=== PATIENT | female | born 1970 | race Caucasian/White ===

== ENCOUNTER 2019-08-08 06:57 | Day surgery (SDC) | payer BC ==
[~2019-08-08 06:57] MED LIST: Buffered Lidocaine 1% SYRIN* 1 ML/SYRINGE INTRADERM ONE; Lactated Ringers 1000 ML Bag* 1,000 ML IV SCH
[2019-08-08] MEDS ORDERED: Lidocaine 2.5%/Prilocain 2.5%* 5 GM TUBE ONE (07:36)
[2019-08-08] MEDS ORDERED: Buffered Lidocaine 1% SYRIN* 1 ML/SYRINGE INTRADERM ONE (07:59)
[2019-08-08] MEDS ORDERED: Ondansetron INJ* 2 MG/ML VIAL IV PRN (10:31)
[2019-08-08] MEDS ORDERED: Naloxone* 0.4 MG/ML 1 ML VIAL IV PRN (10:31)
[2019-08-08] MEDS ORDERED: HYDROmorphone INJ1* 1 MG/ML SYRINGE IV PRN (10:31)
[2019-08-08] MEDS ORDERED: Acetaminophen TAB* 325 MG PO PRN (10:31)
[2019-08-08] MEDS ORDERED: KETAMINE HCL* 50 MG/ML 10 ML VIAL ONE (10:38)
[2019-08-08] MEDS ORDERED: Propofol* 500 MG/50 ML BTL ONE (10:38)
[2019-08-08] MEDS ORDERED: Lidocaine 2% PF * 5 ML VIAL ONE ×2 (10:38→12:06)
[2019-08-08] MEDS ORDERED: Midazolam* 1 MG/ML 2 ML VIAL (2 MG) ONE ×2 (10:38→12:43)
[2019-08-08] MEDS ORDERED: Lidocaine 1% INJ* 10 MG/ML 30 ML SDV ONE (11:10)
[2019-08-08] MEDS ORDERED: Bupivacaine 0.25% EPI 200,000* 30 ML SDV ONE (11:10)
[2019-08-08] MEDS ORDERED: Bupivacaine 0.25% SDV PF* 10 ML VIAL INJ ONE (11:10)
[2019-08-08] MEDS ORDERED: ceFAZolin 2 GM in NS PREMIX(*) 2 GM/100 ML BAG IVPB ONE (11:34)
[2019-08-08] MEDS ORDERED: Acetaminophen TAB* 325 MG ONE (13:38)
--- NOTE | 2019-08-08 13:51 | BRIEFOPN ---
Brief Operative/Procedure Note - Operation Details Pre-Op Diagnosis: Right breast DCIS Post-Op Diagnosis: Same plus right breat bloody nipple discharge Procedures: Needle localization excision of right breast DCIS Surgeon(s)/Proceduralists: Lit. Asst: OMAR Carney Anesthesia: local-MAC Estimated Blood Loss: 10cc Findings: see dictation Specimen(s)/Culture(s) Description: Right breast tissue x 2 Complications: none
[2019-08-08] MEDS ORDERED: Hydrocodone/Acetamin 10/325 1 TAB PO PRN (13:52)
[2019-08-08] MEDS ORDERED: HYDROmorphone INJ1* 1 MG/ML SYRINGE ONE (14:11)
[2019-08-08 14:58] VITALS: BP 116/74
--- NOTE | 2019-08-08 21:11 | OP ---
CC: [facility]; ROSEMARIE Tanner * DATE OF OPERATION: 08/08/19 - MERGED WITH [facility] DATE OF : 72 SURGEON: Bre Murrieta MD. AWNING INSTALLER: ROSEMARIE Rojas student. PRE-OP DIAGNOSIS: Right breast ductal carcinoma in situ. POST-OP DIAGNOSIS: Right breast ductal carcinoma in situ along with right breast bloody nipple discharge. OPERATIVE PROCEDURE: Needle localization excision of right breast ductal carcinoma in situ. INDICATION: Ms. Sanchez is a 49-year-old woman who was recently identified as having a ductal carcinoma in situ in the right breast prompting the plan for surgical intervention. On the day before surgery, she called the office saying she was having some bloody nipple discharge from the right breast, so plans were made to evaluate that at the time of surgery. DESCRIPTION OF PROCEDURE: On the morning of surgery, she underwent needle localization without difficulty. She was then brought to the operating room, placed on the OR table in the supine position. The bloody nipple discharge was identified before coming back to the OR and the duct had been marked. After infiltrating with local anesthetic, a curvilinear incision was made between the wire exit site and the nipple areolar complex. Subcutaneous tissue was then divided with electrocautery superiorly to the level of the wire. The wire was identified and was withdrawn through the skin and then additional tissue from around the wire was excised using electrocautery. Before this was completely removed, the duct in the nipple was cannulated with a lacrimal probe and then dissection inferiorly towards the underside of the nipple areolar complex was done until the duct holding the lacrimal probe was identified. This duct was isolated, the lacrimal probe was removed, the duct was divided. Then, additional breast tissue was taken from around the duct posteriorly. This was within a reasonable distance from the wire localization specimen. So, they were removed in continuity. Once the tissue was out of the breast, it was marked in the usual fashion with the additional notation that the double stitch randle the duct. This was handed off as a specimen and hemostasis was achieved with electrocautery. The report came back from radiology that the specimen did not in fact contain the clip. So, some additional tissue was grasped with an Allis clamp located anterior and superior to the previous specimen and this tissue was dissected for using electrocautery. It was also marked in the usual fashion and handed off as a specimen and sent to radiology. Meanwhile, hemostasis was again achieved with electrocautery. The wound was irrigated copiously with saline and again inspected for hemostasis, which was achieved with electrocautery. The report eventually came back from radiology that the second specimen contained the clip. Additional local was instilled into the wound and then closure was accomplished with 3-0 Vicryl in the subcutaneous layer and the skin was closed with 4-0 Prolene in the subcuticular fashion. Steri- Strips and a dry sterile dressing were applied. All sponge and instrument counts were correct. The patient tolerated the procedure well and was transferred to Recovery in a stable condition. [id number]/[facility] #: [id number] [facility] SYSTEMShanna
== END 2019-08-08 15:10 | disposition home or self-care (01) ==
LOC: OR 06:57
PROVIDERS: ATTEND Surgery
DX: D05.11 Intraductal carcinoma in situ of right breast (principal); N64.52 Nipple discharge; F17.210 Nicotine dependence, cigarettes, uncomplicated
CPT/HCPCS: 81025; 88307; A9270-GY; J0690; J1170; J2250; J2704; J3490

== ENCOUNTER 2019-09-26 06:46 | Day surgery (SDC) | payer BC ==
--- NOTE | 2019-09-05 16:35 | HP ---
CC: Dr. Gore; Dr. Stalin Coreas * PREOPERATIVE HISTORY AND PHYSICAL: DATE OF SURGERY/ADMISSION: 09/26/19 This patient is scheduled for same-day surgery admission with overnight extension by Dr. Murrieta on 09/26/19. DATE OF PREOPERATIVE HISTORY AND PHYSICAL: 09/03/19. ATTENDING SURGEON: Dr. Bre Murrieta * (dictated by Bhavna Lake NP). CHIEF COMPLAINT: Right breast cancer. HISTORY OF PRESENT ILLNESS: The patient is a 49-year-old female with a newly diagnosed right breast DCIS. The patient noted the onset of clear bilateral nipple discharge. She went to her primary care provider and was noted to be hyperthyroid, but also sent for a mammogram. Her thyroid medication was decreased and the nipple discharge stopped. Her mammogram, however, showed an indeterminate area of microcalcifications in the central portion of the right breast. Stereotactic biopsy confirmed grade 2 DCIS that was ER and KS positive. She underwent needle localization excision of the right breast DCIS on 08/08/[address] Murrieta. The pathology was notable for extensive DCIS with 1 segment 4 cm and a further anterior segment 2.5 cm with multiple very close margins. Dr. Murrieta reviewed the findings with the patient and the patient has opted for bilateral mastectomies with right sentinel lymph node biopsy and immediate reconstruction with Dr. Gore at the same setting. Dr. Murrieta described the nature of the bilateral mastectomies and the right sentinel lymph node biopsy. She described the relevant risks and benefits and also discussed with the patient the benefits of the immediate reconstruction with Dr. Gore. The patient has already had a consultation with Dr. Gore. Dr. Murrieta discussed the overnight stay in the hospital, the use of Hermelindo-Wiley drains, and the expected postoperative recovery. The patient has had a chance to ask questions and stated that she understands the information and is satisfied with the answers given to her questions. She will sign surgical consent on the day of surgery. PAST MEDICAL HISTORY: Graves disease with iodine ablation approximately 7 years ago in [place], anxiety, osteoarthritis, mild gastroesophageal reflux disease, hypothyroidism, deafness in the left ear since , history of sleep apnea and she does not use CPAP. PAST SURGICAL HISTORY: Left knee ACL repair 2008, ectopic 2002, and tonsillectomy 1978. MEDICATIONS: 1. Levothyroxine 125 mcg p.o. daily. 2. Venlafaxine 75 mg p.o. daily. ALLERGIES: No known drug allergies. FAMILY HISTORY: No known history of anesthesia complications, no history of deep vein thrombosis or pulmonary embolism, no unusual bleeding tendencies. Maternal first cousin was diagnosed with breast cancer in her 50s. Maternal grandmother diagnosed with ovarian cancer at age 68. SOCIAL HISTORY: She is a daily smoker who has smoked a pack a day for 25 years. She denies the use of recent alcohol and denies the use of other substances. She is employed full-time in housekeeping at [employer]. REVIEW OF SYSTEMS: Constitutional: No fevers, chills, excessive fatigue, or unintended weight loss. General: With previous anesthesia, she has had severe vomiting; no history of deep vein thrombosis or pulmonary embolism, no history of blood transfusions or unusual bleeding. Endocrine: No diabetes, history of Graves disease with iodine ablation 7 years ago. Breasts: As described in history of present illness. Respiratory: She is a smoker. She denies any dyspnea on exertion or chronic cough. History of sleep apnea and she does not use CPAP. Cardiovascular: No anginal chest pain or palpitations. Gastrointestinal: Mild gastroesophageal reflux; no nausea, vomiting, diarrhea, GI bleeding, constipation, or change in bowel habits. Musculoskeletal: Normal strength and tone, osteoarthritis in some joints. Integumentary: No chronic rashes or skin changes. Neurologic: No headache or blurred vision. No areas of focal weakness or numbness. Psychiatric: She expresses anxiety about the upcoming procedure. She has a history of depression. Genitourinary: No dysuria; last menstrual period 08/23/19 and her periods are regular. PHYSICAL EXAMINATION GENERAL: The patient is a 49-year-old obese female, well developed, in no acute distress. VITAL SIGNS: Height 62.5 inches, weight 202 pounds, body mass index 36.4. Blood pressure 117/80, pulse 80, and regular, respiratory rate 16, temperature 98.1 tympanic. HEENT: Benign. NECK: Supple, no cervical lymphadenopathy. No obvious thyromegaly. No supraclavicular lymphadenopathy. BREASTS: Right breast with a well-healed lumpectomy scar without any signs of infection. Breasts are symmetric and pendulous. There is no nipple retraction or skin dimpling. Palpation of both breasts reveals dense knobby tissue without discrete masses bilaterally. BACK: No CVA tenderness. LUNGS: Breath sounds bilaterally clear and equal. HEART: Regular rate and rhythm. No murmurs or rubs appreciated. ABDOMEN: Active bowel sounds, obese, soft, nondistended, nontender throughout. No obvious masses, organomegaly, or evidence of ventral hernia. PELVIC AND RECTAL: Deferred. EXTREMITIES: Warm without edema or skin ulceration. NEUROLOGIC: Alert and oriented x3, steady gait. SKIN: Warm, dry, intact. IMPRESSION: Intraductal carcinoma in situ of the right breast. PLAN: Same-day surgery admission with overnight extension to Dr. Murrieta's service on 09/26/19, for bilateral mastectomies with right sentinel lymph node biopsy followed by immediate reconstruction by Dr. Gore. BHAVNA LAKE NP [id number]/[facility] #: [id number] NEYDA
[~2019-09-26 06:46] MED LIST changes: -Lactated Ringers 1000 ML Bag* 1,000 ML IV SCH
[2019-09-26] MEDS ORDERED: Lidocaine 2.5%/Prilocain 2.5%* 5 GM TUBE ONE (07:12)
[2019-09-26] MEDS ORDERED: Dexamethasone IV* 4 MG/ML 1 ML (4 MG) ONE (10:03)
[2019-09-26] MEDS ORDERED: Scopolamine 1.5 mg* PATCH ONE (10:03)
[2019-09-26] MEDS ORDERED: Heparin VIAL(*) 5000 UNITS/ML VIAL (FIVE THOUSAND) ONE (10:03)
[2019-09-26] MEDS ORDERED: ceFAZolin 2 GM in NS PREMIX(*) 2 GM/100 ML BAG IVPB ONE (10:04)
[2019-09-26] MEDS ORDERED: Ondansetron INJ* 2 MG/ML VIAL ONE ×2 (10:06→18:35)
[2019-09-26] MEDS: Lactated Ringers 1000 ML Bag* 1,000 ML IV SCH ×2 (10:13→21:27)
[2019-09-26] MEDS ORDERED: Gentamicin ADULT (*) 40 MG/ML VIAL (2 ML VIAL = 80 MG) ONE ×2 (12:34→16:08)
[2019-09-26] MEDS ORDERED: Methylene Blue 0.5 %* 50 MG/10 ML AMP IV ONE (12:34)
[2019-09-26] MEDS ORDERED: Bacitracin INJECTION* 50,000 UNITS ONE ×2 (12:35→16:08)
[2019-09-26] MEDS ORDERED: Bupivacaine 0.25% SDV PF* 10 ML VIAL INJ ONE (12:35)
[2019-09-26] MEDS ORDERED: ceFAZolin VIAL(*) VIAL ONE ×3 (12:36→18:18)
[2019-09-26] MEDS ORDERED: Povidone Iodine 5% OPTH* 30 ML BTL ONE (12:46)
[2019-09-26] MEDS ORDERED: Bupivacaine 0.5% W/EPI SDV* 10 ML VIAL INJ ONE (13:03)
[2019-09-26] MEDS ORDERED: Lidocaine 2% PF * 5 ML VIAL ONE (13:36)
[2019-09-26] MEDS ORDERED: Propofol* 10 MG/ML 20 ML BTL ONE (13:36)
[2019-09-26] MEDS ORDERED: Midazolam* 1 MG/ML 2 ML VIAL (2 MG) ONE (13:36)
[2019-09-26] MEDS ORDERED: fentaNYL* 50 MCG/ML 2 ML VIAL (100 MCG VIAL) ONE ×3 (13:37→19:56)
[2019-09-26] MEDS ORDERED: Rocuronium* 10 MG/ML VIAL ONE ×2 (13:55→15:56)
[2019-09-26] MEDS ORDERED: EPHEDrine (Pressors)* 50 MG/ML VIAL ONE (14:04)
[2019-09-26] MEDS ORDERED: DiMENhydriNATE IV* 50 MG/ML VIAL IV PUSH PRN (14:41)
[2019-09-26] MEDS ORDERED: fentaNYL* 50 MCG/ML 2 ML VIAL (100 MCG VIAL) IV PRN (14:41)
[2019-09-26] MEDS ORDERED: oxyCODONE TAB* 5 MG TAB PO PRN (14:41)
[2019-09-26] MEDS ORDERED: Naloxone* 0.4 MG/ML 1 ML VIAL IV PRN (14:41)
[2019-09-26] MEDS ORDERED: Ketorolac INJ* 30 MG/ML 1 ML VIAL IV PRN (16:31)
[2019-09-26] MEDS ORDERED: HYDROmorphone INJ* 0.5 MG/0.5 ML SYRINGE IV SLOW PU PRN (16:31)
[2019-09-26] MEDS ORDERED: Acetaminophen TAB* 325 MG PO PRN (16:37)
[2019-09-26] MEDS ORDERED: oxyCODONE/Acetamin 5/325 MG* TAB PO PRN (16:37)
--- NOTE | 2019-09-26 16:37 | BRIEFOPN ---
Brief Operative/Procedure Note - Operation Details Pre-Op Diagnosis: Right Breast Cancer Post-Op Diagnosis: same Procedures: Bilateral Mastectomies with right sentinel lymph node biopsy Surgeon(s)/Proceduralists: Lit. Asst: Edilberto Anesthesia: General Estimated Blood Loss: 100cc Findings: see dictation Specimen(s)/Culture(s) Description: left breast. right breast with SLN #1. SLN #2 Complications: none
[2019-09-26] MEDS ORDERED: Docusate CAP* 100 MG PO PRN (16:38)
[2019-09-26] MEDS ORDERED: Ondansetron INJ* 2 MG/ML VIAL IV PRN (16:38)
[2019-09-26] MEDS ORDERED: Lactated Ringers 1000 ML Bag* 1,000 ML IV SCH (17:00)
[2019-09-26] MEDS ORDERED: ceFAZolin 2 GM PREMIX in ORs 2 GM/50 ML BAG IVPB SCH (18:00)
[2019-09-26] MEDS ORDERED: Bupivacaine 0.25% EPI 200,000* 30 ML SDV ONE ×2 (18:20→18:21)
[2019-09-26] MEDS ORDERED: Ketorolac INJ* 30 MG/ML 1 ML VIAL ONE (18:35)
[2019-09-26] MEDS ORDERED: Metoclopramide IV* 5 MG/ML 2 ML VIAL ONE (18:35)
[2019-09-26] MEDS ORDERED: Sugammadex * 200 MG/2 ML VIAL IV PUSH ONE (18:35)
[2019-09-26] MEDS ORDERED: Acetaminophen IV 1GM/100ML * 100 ML ONE (18:36)
[2019-09-26] MEDS ORDERED: HYDROcodone/ACETAMIN 5-325 MG* 1 TAB ONE (20:13)
--- NOTE | 2019-09-26 21:12 | OP ---
CC: [facility]; ROSEMARIE Enriquez * DATE OF OPERATION: 09/26/19 - [facility] DATE OF : 72 SURGEON: Bre Murrieta MD HUMAN RESOURCE MANAGER: ROSEMARIE Mei PRE-OP DIAGNOSIS: Right breast cancer. POST-OP DIAGNOSIS: Right breast cancer. OPERATIVE PROCEDURE: Bilateral mastectomy and right sentinel lymph node biopsy. INDICATIONS: Ms. Sanchez is a 49-year-old woman who is status post a right lumpectomy for what turned out to be extensive ductal carcinoma in situ with positive margins, prompting the plan for further surgery. After extensive discussions with the patient and in consultation with Plastic Surgery, she elected to have bilateral mastectomy with immediate reconstruction, so plans were made for bilateral mastectomy and sentinel lymph node biopsy with immediate reconstruction. On the morning of surgery, she underwent sentinel lymph node localization without difficulty. DESCRIPTION OF PROCEDURE: She was then brought to the operating room and placed on the OR table in a supine position and given general anesthesia. Both chest lin and the right axilla were prepped and draped in the usual sterile fashion. Attention was turned first to the left side. An incision was made in the superior breast following a line that had been marked by Dr. Gore. Flaps were then developed using electrocautery, medially to sternum, superior to clavicle, laterally to the latissimus dorsi muscle. Once this was done, an inferior incision was made and completing the ellipse around the nipple areolar complex and again flaps were developed using electrocautery medially to the sternum, inferiorly to the rectus muscle and lateral to the latissimus dorsi muscle. The breast was then elevated off the chest wall using electrocautery. Once this was complete, it was marked in usual fashion and handed off as a specimen. The left side was then turned over to Dr. Gore for immediate reconstruction and our attention was turned to the right side. Here again, an incision was made along the line that had been marked preoperatively by Dr. Gore in the superior breast. Subcutaneous tissue was then divided with electrocautery to develop flaps medially to the sternum, superiorly to the clavicle and laterally to the latissimus dorsi muscle. An incision was made then in the inferior breast to complete the ellipse around the nipple areolar complex and again flaps were developed using electrocautery medially to the sternum, inferiorly to the rectus muscle and laterally to the latissimus dorsi muscle. The breast was then elevated off the chest wall using electrocautery. It should be mentioned that throughout the dissection, hemostasis was achieved with electro-cautery. Once the region of the axilla was reached, the navigator was used to identify two sentinel nodes, one was noted to be attached to the axillary tail of the breast. This had in situ counts of around 1676. A second sentinel node was identified higher in the axilla, this had in situ counts of 1937 and when it was removed which was done using sharp dissection and clips to control small lymphatic and blood vessels that approached it, its ex vivo counts were around 2500. The rest of the breast was then removed from the chest wall and handed off as a specimen. Axillary bed counts were checked and noted to be 18. The left side was then turned over again to Dr. Gore for completion of the immediate reconstruction. It should be mentioned that hemostasis appeared adequate at this time and a moist lap pad was placed in the cavity behind the skin flaps. The patient tolerated the procedure well and was transferred to Dr. Gore in a stable condition. [id number]/[facility] #: [id number] [facility]ENTERShanna
[2019-09-26] MEDS: Heparin VIAL(*) 5000 UNITS/ML VIAL (FIVE THOUSAND) SUBCUT SCH (22:17)
[2019-09-27] MEDS: CEFAZOLIN IVPB SCH ×3 (00:23→11:54)
[2019-09-27] MEDS: NS IVPB SCH ×3 (00:23→11:54)
[2019-09-27] MEDS: Heparin VIAL(*) 5000 UNITS/ML VIAL (FIVE THOUSAND) SUBCUT SCH (05:55)
[2019-09-27] MEDS ORDERED: Levothyroxine TAB* 125 MCG TAB PO SCH (06:00)
--- NOTE | 2019-09-27 08:03 | PN ---
Progress Note - Progress Note Date of Service: 09/27/19 Note: Surgery Ms. Sanchez denies problems. She has had some discomfort with her incisions when she turns, but otherwise feels ok. Vital Signs 09/26/19 09/26/19 09/26/19 10:27 19:07 19:09 Temperature 97.3 F Pulse Rate 64 82 89 Respiratory 16 28 Rate Blood Pressure 107/63 133/71 (mmHg) O2 Sat by Pulse 96 97 96 Oximetry 09/26/19 09/26/19 09/26/19 19:10 19:11 19:16 Temperature 97.7 F Pulse Rate 89 77 Respiratory 16 21 22 Rate Blood Pressure 115/61 112/60 (mmHg) O2 Sat by Pulse 98 96 Oximetry 09/26/19 09/26/19 09/26/19 19:21 19:26 19:31 Temperature Pulse Rate 92 79 90 Respiratory 16 22 26 Rate Blood Pressure 117/78 123/66 123/80 (mmHg) O2 Sat by Pulse 94 93 93 Oximetry 09/26/19 09/26/19 09/26/19 19:36 19:41 19:46 Temperature Pulse Rate 89 69 76 Respiratory 27 24 18 Rate Blood Pressure 127/69 119/77 129/76 (mmHg) O2 Sat by Pulse 94 94 93 Oximetry 09/26/19 09/26/19 09/26/19 19:51 19:56 19:57 Temperature Pulse Rate 72 88 Respiratory 17 24 20 Rate Blood Pressure 117/66 92/71 (mmHg) O2 Sat by Pulse 95 89 Oximetry 09/26/19 09/26/19 09/26/19 20:00 20:01 20:06 Temperature Pulse Rate 76 81 71 Respiratory 24 19 15 Rate Blood Pressure 126/73 130/68 (mmHg) O2 Sat by Pulse 94 92 94 Oximetry 09/26/19 09/26/19 09/26/19 20:11 20:16 20:21 Temperature Pulse Rate 68 63 71 Respiratory 19 17 16 Rate Blood Pressure 121/81 122/77 133/80 (mmHg) O2 Sat by Pulse 95 94 95 Oximetry 09/26/19 09/26/19 09/26/19 20:26 20:31 20:36 Temperature Pulse Rate 68 76 79 Respiratory 22 19 20 Rate Blood Pressure 126/76 124/74 119/73 (mmHg) O2 Sat by Pulse 95 94 94 Oximetry 09/26/19 09/26/19 09/26/19 21:20 21:45 23:43 Temperature 97.4 F 97.9 F Pulse Rate 57 57 Respiratory 17 16 16 Rate Blood Pressure 111/53 112/70 (mmHg) O2 Sat by Pulse 97 93 Oximetry 09/27/19 09/27/19 09/27/19 00:16 00:39 02:28 Temperature 98.3 F 97.9 F Pulse Rate 59 62 Respiratory 16 16 Rate Blood Pressure 124/97 110/67 (mmHg) O2 Sat by Pulse 97 96 93 Oximetry 09/27/19 09/27/19 09/27/19 05:06 05:07 06:48 Temperature 98.0 F Pulse Rate 70 Respiratory 16 17 18 Rate Blood Pressure 122/69 (mmHg) O2 Sat by Pulse 94 Oximetry 09/27/19 08:01 Temperature 97.7 F Pulse Rate 78 Respiratory 17 Rate Blood Pressure 117/64 (mmHg) O2 Sat by Pulse 94 Oximetry Bilateral mastectomy sites: Prevena dressings in place and functional. JANIA drains: serosanguinous fluid in all 3 drains. Intake & Output 09/26/19 09/27/19 09/27/19 22:59 06:59 14:59 Intake Total 1979 2049 Output Total 125 1200 Balance 1855 850 Intake: IV Fluids 1500 1090 ABX - CEFAZOLIN 100 LR 1500 990 Oral 480 960 Output: JANIA #1 40 55 JANIA #2 40 15 JANIA #3 45 80 Urine 0 1050 A/P: POD#1 s/p bilateral mastectomies with immediate reconstruction. Doing well. Discharge per Dr. Gore, but from general surgical standpoint she is clear to go home. Antibiotics and drain removal per Dr. Gore.
--- NOTE | 2019-09-27 08:39 | DS ---
DISCHARGE SUMMARY: DATE OF ADMISSION: 09/26/19 DATE OF ANTICIPATED DISCHARGE: 09/27/19 ADMISSION DIAGNOSIS: Right breast cancer. DISCHARGE DIAGNOSIS: Right breast cancer. PROCEDURES DURING HOSPITALIZATION: Included bilateral mastectomies with immediate implant reconstruction. Please see admission history and physical for details of findings at the time of admission. HOSPITAL COURSE: Ms. Sanchez is a 49-year-old woman who was diagnosed with ductal carcinoma in situ that turned out to be extensive, requiring mastectomy. She opted for bilateral mastectomies with reconstruction and underwent this procedure on the date of admission. She was then admitted for observation overnight, and the next morning she was feeling like her pain was under control and anxious to go home. Discharge today will be dependent on clearance by Dr. Gore, but upon discharge she will follow up as an outpatient. [id number]/[facility] #: [id number] NEYDA
[2019-09-27 11:21] VITALS: BP 120/66
--- NOTE | 2019-09-27 13:25 | OP ---
CC: Dr. Bre Murrieta; Dr. Skyla Vazquez; ROSEMARIE Tanner * DATE OF OPERATION: 09/26/19 - MERGED WITH [facility] DATE OF : 72 SURGEON: Osito Gore MD RESERVE OPERATOR: SUSAN Araujo SECOND TECHNICAL ASSISTANCE CONSULTANT: Shirley Thomas. ANESTHESIOLOGIST: Shefali Clayton DO ANESTHESIA: General. PRE-OP DIAGNOSIS: Right breast ductal carcinoma in situ. POST-OP DIAGNOSIS: Right breast ductal carcinoma in situ. OPERATIVE PROCEDURE: Immediate bilateral breast reconstruction with tissue expanders and acellular dermal matrix slings. ESTIMATED BLOOD LOSS: Less than 50 cc from my portion of the surgery. SPECIMENS: None. DRAINS: Three 10-mm flat Hermelindo-Wiley drains, 2 on the right, 1 on the left. COMPLICATIONS: None. Right breast tissue pellet post inspector: Melber SMXP [id number], lot #[id number], serial number [id number], initial fill volume 150 cc. Left breast tissue pellet post inspector: Melber: SMXP [id number], lot #[id number], serial #[id number], initial fill volume 150 cc. Right acellular dermal matrix: [id number] pliable shaped large perforated 13x22 cm. Left acellular dermal matrix: [id number] [id number], pliable shaped large perforated 13x22 cm. INDICATIONS FOR OPERATION: The patient is a 49-year-old female who is status post recent right breast lumpectomy on 08/08/[address] Murrieta, which showed ductal carcinoma in situ with multiple close margins. The patient has decided on bilateral mastectomy, which was performed today by Dr. Murrieta. The patient has elected to proceed with immediate bilateral breast reconstruction with tissue expanders and acellular dermal matrix slings. DESCRIPTION OF PROCEDURE: Preoperative markings were made with the patient in the standing position in the preop holding area marking out the presternal midline in the inframammary folds bilaterally. In addition, in consultation with Dr. Murrieta, the planned mastectomy incision was also marked out using transversely oriented fusiform elliptical incision lines to fully encompass the nipple-areolar complexes and remove significant amounts of redundant excess skin. The patient was taken to the operating room and bilateral mastectomy performed. Details of that procedure contained in the separate operative note dictation by Dr. Murrieta. Union node biopsy was performed on the right breast at the same time. I scrubbed in to the procedure after the left mastectomy was complete. The lateral border of the left pectoralis major muscle was identified and submuscular pocket developed by sharp dissection with scissors and electrocautery. Inferior and inferomedial origins of the pectoralis major muscle was released by sharp dissection with electrocautery. Meticulous hemostasis was maintained throughout the procedure with fine point coagulation current electrocautery. The acellular dermal matrix sling was then soaked in saline and then positioned. The inferior edge of the sling was sutured to the planned inframammary fold using interrupted sutures of 2-0 Vicryl. The pocket was irrigated with 5% Betadine and saline solution containing Ancef, bacitracin , and gentamicin. The pocket was then rinsed until clear with normal saline and irrigated with saline containing Ancef, bacitracin, gentamicin, but no Betadine. Hemostasis was noted to be good. The Melber SMXP [id number] saline tissue pellet post inspector was rinsed with antibiotic solution and placed in the subpectoral pocket and under the acellular dermal matrix sling. Air was removed from the tissue pellet post inspector. Suture tabs were secured to the chest wall interrupted sutures of 3-0 Prolene. The superior edge of the acellular dermal matrix sling was then sutured to the inferior and lateral margin pectoralis major muscle using running 2-0 Vicryl. The lateral inferior margin of the matrix sling was sutured to the lateral chest wall in the region of the serratus fascia to reestablish the lateral mammary fold. Tissue pellet post inspector was filled to initial total fill volume of 150 cc using a closed system in the usual fashion. There was still redundant excess skin present and furthermore the inferior portion of the superior mastectomy. Skin flap was quite thin in some areas and therefore further skin was excised to remove the redundant areas. Single 10-mm flat Hermelindo-Wiley drain was placed on top of the acellular dermal matrix sling and brought out through an incision in the left lateral chest wall and secured to the skin with 3-0 Prolene suture. The skin flaps were approximated and closed with buried subcutaneous deep dermal sutures and 3-0 Vicryl, and then running subcuticular suture of 3-0 Monocryl. A similar mirror image type procedure was performed on the right side once the mastectomy and sentinel node biopsy had been completed. It should be noted that during the mastectomy portion of the procedure, the inferior portion of the dermal attachments of the skin overlying the sternal area were partially disrupted and there was a very thin layer of areolar tissue remaining the two mastectomy wounds in the inferior sternal area. The lateral border of the right pectoralis major muscle was identified and submuscular pocket developed a sharp dissection with scissors and electrocautery. Inferior and inferomedial origins of the pectoralis major muscle were released with electrocautery. Acellular dermal matrix sling was positioned and the inferior edge of the sling sutured to the planned inframammary fold using interrupted sutures of 2-0 Vicryl. The pocket was irrigated. Hemostasis was obtained. The tissue pellet post inspector was placed and filled to an initial fill volume of 150 cc. The superior edge of the sling was sutured to the pectoralis major muscle with running 2-0 Vicryl and the lateral inferior margin of the sling sutured to the lateral chest wall. A 10-mm flat Hermelindo-Wiley drain was placed overlying the sling and brought out to the lateral chest skin and sutured in place with 3-0 Prolene suture. A second drain was placed in the right axilla and brought out laterally as well in a more superior location and again sutured the skin with 3- 0 Prolene suture. The wound was closed in an identical fashion to the left side with 3-0 Vicryl in the subcutaneous fascia and deep dermal layer and running 3-0 Monocryl in the skin. It should be noted that there was redundant skin in the right mastectomy flaps as well and this was removed prior to wound closure a well. The patient tolerated the procedure well. The wounds were dressed with VAC Prevena Restor dressings on both sides. All counts were reported as correct at the end of the procedure. The patient was taken to the recovery area in stable postoperative condition. [id number]/[facility] #: [id number] [facility] HEALTHShanna
== END 2019-09-27 13:20 | disposition home or self-care (01) ==
LOC: SDS 06:46 → SSU 21:52 → SDS 09-27 13:20
PROVIDERS: ATTEND Surgery
DX: D05.11 Intraductal carcinoma in situ of right breast (principal); E03.9 Hypothyroidism, unspecified; K21.9 Gastro-esophageal reflux disease without esophagitis; M19.90 Unspecified osteoarthritis, unspecified site; F41.9 Anxiety disorder, unspecified; F17.210 Nicotine dependence, cigarettes, uncomplicated; G47.33 Obstructive sleep apnea (adult) (pediatric); E66.9 Obesity, unspecified
CPT/HCPCS: 36415; 78195; 81025; 86850; 86900; 86901; 88307; 88342; A9270-GY; A9541; C1789; J0690; J1100; J1170; J1580; J1644; J1885; J2250; J2405; J2704; J2765; J3010; J3490; Q4128

== ENCOUNTER 2019-11-25 05:38 | Day surgery (SDC) | payer BC ==
[2019-11-25] MEDS ORDERED: Lactated Ringers 1000 ML Bag* 1,000 ML IV SCH (06:00)
[2019-11-25] MEDS ORDERED: Heparin VIAL(*) 5000 UNITS/ML VIAL (FIVE THOUSAND) ONE (06:12)
[2019-11-25] MEDS ORDERED: Ondansetron INJ* 2 MG/ML VIAL ONE (06:12)
[2019-11-25] MEDS ORDERED: Dexamethasone IV* 4 MG/ML 1 ML (4 MG) ONE (06:12)
[2019-11-25] MEDS ORDERED: ceFAZolin 2 GM PREMIX in ORs 2 GM/50 ML BAG ONE (06:13)
[2019-11-25] MEDS ORDERED: Scopolamine 1.5 mg* PATCH ONE (06:13)
[2019-11-25] MEDS ORDERED: Buffered Lidocaine 1% SYRIN* 1 ML/SYRINGE INTRADERM ONE (06:13)
[2019-11-25] MEDS ORDERED: Methylene Blue 0.5 %* 50 MG/10 ML AMP IV ONE (07:11)
[2019-11-25] MEDS ORDERED: Bupivacaine 0.25% SDV* 30 ML ONE (07:12)
[2019-11-25] MEDS ORDERED: Lidocaine 1% w EPI 1:100,000* MDV 20 ML VIAL ONE (07:12)
[2019-11-25] MEDS ORDERED: ceFAZolin VIAL(*) VIAL ONE (07:23)
[2019-11-25] MEDS ORDERED: Propofol* 10 MG/ML 20 ML BTL ONE (07:27)
[2019-11-25] MEDS ORDERED: fentaNYL* 50 MCG/ML 2 ML VIAL (100 MCG VIAL) ONE (07:28)
[2019-11-25] MEDS ORDERED: Midazolam* 1 MG/ML 5 ML VIAL (5 MG) ONE (07:28)
[2019-11-25] MEDS ORDERED: Phenylephrine 40 MCG/ML SYRINGE ONE (07:52)
[2019-11-25] MEDS ORDERED: fentaNYL* 50 MCG/ML 2 ML VIAL (100 MCG VIAL) IV PRN (08:07)
[2019-11-25] MEDS ORDERED: HYDROmorphone INJ1* 1 MG/ML SYRINGE IV PRN (08:07)
[2019-11-25] MEDS ORDERED: Naloxone* 0.4 MG/ML 1 ML VIAL IV PRN (08:07)
[2019-11-25] MEDS ORDERED: DiMENhydriNATE IV* 50 MG/ML VIAL IV PUSH PRN (08:07)
[2019-11-25] MEDS ORDERED: oxyCODONE/Acetamin 5/325 MG* TAB PO PRN (08:07)
[2019-11-25] MEDS ORDERED: Ondansetron INJ* 2 MG/ML VIAL IV PRN (08:07)
[2019-11-25 09:48] VITALS: BP 133/87
== END 2019-11-25 10:13 | disposition home or self-care (01) ==
LOC: OR 05:38
PROVIDERS: ATTEND Plastic Surgery
DX: T81.89XA Other complications of procedures, not elsewhere classified, initial encounter (principal); Z85.3 Personal history of malignant neoplasm of breast; F17.210 Nicotine dependence, cigarettes, uncomplicated; F41.8 Other specified anxiety disorders; E03.9 Hypothyroidism, unspecified
CPT/HCPCS: 81025; 87070; 87073; 87077; 87186; 87205; 88305; A9270-GY; J0690; J1100; J1644; J2250; J2405; J2704; J3010; J3490

== ENCOUNTER 2020-01-16 11:54 | Inpatient (IN) | payer BC ==
--- OUTSIDE RECORDS SUMMARY | 2020-01-16 12:05 | XMS REPORT | Continuity of Care Document ---
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 No Information Available Social History Type Date Description Comments Sex Unknown ETOH Use Denies alcohol use Tobacco Use Start: Unknown Heavy tobacco smoker 1PPD, for ~ 25 years (more than 10 (as of 11/2019) cigarettes/day) Smoking Status Reviewed: 12/11/19 Heavy tobacco smoker 1PPD, for ~ 25 years (more than 10 (as of 11/2019) cigarettes/day) Exercise Does not exercise Type/Frequency Allergies, Adverse Reactions, Alerts Description No Known Drug Allergies Medications Active Medications SIG Qnty Indications Ordering Provider Date Levothyroxine Sodium 1 by mouth every Unknown 125mcg day Tablets Mupirocin Apply To Affected Unknown 2% Ointment Area S Two Times A Day History Medications Hydrocodone-Acetaminophen 1 tab by 12taleslie Torres 09/03/2019 - 5-325mg Tablets mouth every [place], [employer]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 C Reactive 171.54 mg/L High <8.[address] Protein [place], [place] [id number] [phone] CBC Auto Diff 12/01/2019 [facility] White Blood 14.9 High 3.5- 10.[address] Count 10^3/[place] [address] [phone] Red Blood Count 4.27 10^6/uL Normal 3.70-4.87 Hemoglobin 14.0 g/dL Normal 12.0-16.0 Hematocrit 41 % Normal 35-47 Mean Corpuscular Volume 95 fL Normal 80-97 Mean Corpuscular Hemoglobin 33 pg High 27-31 Mean Corpuscular HGB Conc 34 g/dL Normal 31-36 Red Cell Distribution Width 13 % Normal 10-15 Platelet Count 277 10^3/uL Normal 150-450 Mean Platelet Volume 7.6 fL Normal 7.4-10.4 Abs Neutrophils 10.6 10^3/uL High 1.5-7.7 Abs Lymphocytes 2.7 10^3/uL Normal 1.0-4.8 Abs Monocytes 1.2 10^3/uL High 0-0.8 Abs Eosinophils 0.3 10^3/uL Normal 0-0.6 Abs Basophils 0.1 10^3/uL Normal 0-0.2 Abs Nucleated RBC 0.0 10^3/uL Granulocyte % 71.4 % Lymphocyte % 18.4 % Monocyte % 7.7 % Eosinophil % 1.8 % Basophil % 0.7 % Nucleated Red Blood Cells % 0.1 Laboratory test 12/01/2019 [facility] Erythrocyte Sed 42 mm/Hr High 0-[address] [place] [address] [phone] Surgical 11/25/2019 [facility] Surgical SEE RESULT [address] Pathology BELOW [place], [place] [address] [phone] PDFReport SEE IMAGE Surgical 09/26/2019 [facility] Surgical SEE RESULT [address] Pathology BELOW [place], [place] [address] [phone] PDFReport SEE IMAGE Type & Screen 09/26/2019 [facility] Patient Blood Type A Negative [address] [place], [place] [address] [phone] Antibody Screen NEGATIVE Laboratory test 09/25/2019 [facility] Flex HD SEE RESULTS [address] [id number] BELO <[place] [address] NOTE> [phone] CBC Auto Diff 09/17/2019 [facility] White Blood 9.7 10^3/uL Normal 3.5-[address] Count 0.8 [place] [address] [phone] Red Blood Count 4.71 10^6/uL Normal 3.70-4.87 Hemoglobin 15.4 g/dL Normal 12.0-16.0 Hematocrit 45 % Normal 35-47 Mean Corpuscular Volume 97 fL Normal 80-97 Mean Corpuscular Hemoglobin 33 pg High 27-31 Mean Corpuscular HGB Conc 34 g/dL Normal 31-36 Red Cell Distribution Width 14 % Normal 10-15 Platelet Count 239 10^3/uL Normal 150-450 Mean Platelet Volume 7.9 fL Normal 7.4-10.4 Abs Neutrophils 6.4 10^3/uL Normal 1.5-7.7 Abs Lymphocytes 2.4 10^3/uL Normal 1.0-4.8 Abs Monocytes 0.6 10^3/uL Normal 0-0.8 Abs Eosinophils 0.2 10^3/uL Normal 0-0.6 Abs Basophils 0.1 10^3/uL Normal 0-0.2 Abs Nucleated RBC 0.0 10^3/uL Granulocyte % 65.9 % Lymphocyte % 24.9 % Monocyte % 6.0 % Eosinophil % 2.2 % Basophil % 1.0 % Nucleated Red Blood Cells % 0.0 Basic Metabolic 09/17/2019 [facility] Sodium 140 mmol/L Normal 135-[address] [place] [address] [phone] Potassium 4.1 mmol/L Normal 3.5-5.0 Chloride 107 mmol/L Normal 101-111 Co2 Carbon Dioxide 27 mmol/L Normal 22-32 Anion Gap 6 mmol/L Normal 2-11 Glucose 77 mg/dL Normal 70-100 Blood Urea Nitrogen 5 mg/dL Low 6-24 Creatinine 0.45 mg/dL Low 0.51-0.95 BUN/Creatinine Ratio 11.1 Normal 8-20 Calcium 9.5 mg/dL Normal 8.6-10.3 Egfr Non- 148.7 >60 Egfr 179.9 >60 5 Laboratory test 08/08/2019 [facility] Surgical SEE RESULT [address] Pathology BELOW [place], [place] [address] [phone] 1 SEE RESULT BELOW Name: NATHALY CAMPOVERDE : [address]: Osito Gore MD Acct: [id number] Unit: [id number] AGE: 49 Location: OR Re11/25/19 SEX: F [place] [facility] [place]: [id number] MARIFER: 11/25/19- [facility] DR: Osito Gore MD REQ: [id number] RECD: 11/25/19 STATUS: ROBE CHAUHAN DR: Bre Vazquez MD _ ORDERED: LEVEL 4 FINAL DIAGNOSIS Skin, left chest, excision: -- Inflamed scar. -- No evidence of neoplasia. PRE-OPERATIVE DIAGNOSIS Non-healing wound left mastectomy site GROSS DESCRIPTION The specimen is received in formalin labeled, Nonhealing Wound Left Mastectomy Site, and consists of two andino-kulkarni irregular to elliptical focally disrupted skin fragments averaging 4.1 x 1.3 by up to 0.8 cm with central andino-blue shaggy ulcerations averaging 2.2 cm. The specimen is inked, serially sectioned and entirely submitted in cassettes A through G to include ellipse ends in cassettes A and E. Signed by and Reported on: Jaquelin Mcadams MD 11/27/19 1018 END OF REPORT DEPARTMENT OF PATHOLOGY, [address] [place] [address] Stephen Franks M.D. Director [facility] # [id number] 2 SEE RESULT BELOW Name: NATHALY CAMPOVERDE : [address]: Bre Murrieta MD Acct: [id number] Unit: [id number] AGE: 49 Location: [facility] Re09/26/19 SEX: F [place] [facility] SPEC: [id number] MARIFER: 09/26/19- [facility] DR: Bre Murrieta MD REQ: [id number] RECD: 09/26/19 STATUS: ROBE CHAUHAN DR: Virgen Vazquez MD _ ORDERED: LEVEL 5/3, IMMUNO-FIRST/2 FINAL DIAGNOSIS 1. Breast, left, mastectomy: -- Benign skin, nipple, and breast tissue with no significant pathologic abnormalities. 2. Breast, right, mastectomy and sentinel lymph node biopsy: -- Benign breast tissue with prior surgical site changes. -- No evidence of residual DCIS. -- Proliferative fibrocystic change (usual ductal hyperplasia). -- Four lymph nodes (including one sentinel node) negative for metastatic carcinoma (0/4). 3. Marion lymph node, right axilla, biopsy: -- One lymph node negative for metastatic carcinoma (0/1). COMMENT: Per sentinel lymph node protocol, deeper levels of sectioning and pankeratin immunohistochemical stains, with appropriately reacting controls, were performed on sections cut from blocks 2T, 2U, and 3 and support the diagnoses. PRE-OPERATIVE DIAGNOSIS 1) Long suture lateral, medium suture medial, short suture superior 2) long suture lateral ,medium suture medial, short suture superior, additional extra long purple stitch sentinel node #1 CONTINUED ON NEXT PAGE DEPARTMENT OF PATHOLOGY, [address] [place] [address] Stephen Franks M.D. Director [facility] # [id number] GROSS DESCRIPTION 1. The specimen is received in formalin labeled, Left Breast, Long Lateral , Short Superior, Medium Medial, and consists of a 26.0 x 25.5 by up to 6.5 cm left simple mastectomy specimen with three attached sutures which are designated as follows: long-lateral, short-superior and medium-medial. The specimen is partially surfaced by an 18.4 x 5.6 cm andino-pink wrinkled skin ellipse with a central 3.9 x 2.5 by up to 1.9 cm areola and nipple. The cut surface consists predominantly of yellow lobulated adipose tissue with mild interspersed focally dense andino-white fibrous tissue more predominate within the central inferior specimen. A discrete lesion is not identified. Received separately in the same container is a 22.5 by up to 3.3 cm andino-pink wrinkled skin ellipse excised to a depth of 1.1 cm. The specimen is inked as follows: superior anterior-blue, inferior anterior-green and deep-black, serially sectioned from lateral to medial and corporate sales representative sections are submitted in cassettes A through L as follows: A through C-nipple, D-skin, E and F-upper outer quadrant, G and H-lower outer quadrant, I and J-lower inner quadrant and K and L-upper inner quadrant. 2. The specimen is received in formalin labeled, Right Breast, Marion Node #1, and consists of 23.0 x 22.5 x 6.0 cm right simple mastectomy specimen with four attached sutures which as per the accompanied requisition are designated as follows: long- lateral, medium-medial, short-superior and purple-sentinel node #1. The specimen is partially surfaced by a 21.2 x 5.9 cm andino-pink wrinkled skin ellipse with a central 4.0 x 2.5 by up to 1.5 cm areola and nipple. There is a 3.8 cm linear scar, 2.4 cm superior to the nipple. There is a 6.7 x 3.5 x 2.2 cm erythematous to cystic prior excision cavity associated with the scar within the upper inner quadrant, 1.0 cm from the superior anterior margin, 1.1 cm from the skin and 4.7 cm from the deep margin. The cavity lining is dense to rubbery yellow-pink with scant focal hemorrhage. The remaining cut surface consists predominantly of yellow lobulated adipose tissue with moderate focally dense andino-pink fibrous tissue. There are a few andino-kulkarni lymph nodes within the lateral tissue ranging from 0.5 cm to 2.4 cm in greatest dimension; the largest node has an attached suture which designates sentinel node #1. The specimen is inked as follows: superior anterior-blue, inferior anterior-green and deep-black, serially sectioned from lateral to medial and corporate sales representative sections are submitted in cassettes A through U as follows: A through C-nipple, D and E- scar, F through L-cavity, M-deep margin, N and O-upper outer quadrant, P-lower outer quadrant , Q-lower inner quadrant, R-upper inner quadrant, S-three probable lymph nodes and T and U- sentinel node #1. 3. The specimen is received in formalin labeled, Right Marion Node #2, and consists of a 1.4 x 0.8 x 0.4 cm andino-kulkarni lymph node with moderate adherent yellow fat. The cut surface is glistening andino. The lymph node is serially sectioned and entirely submitted in one cassette. Signed by and Reported on: Jaquelin Mcadams MD 10/01/19 0941 END OF REPORT DEPARTMENT OF PATHOLOGY, [address] [place] [address] Stephen Franks M.D. Director [facility] # [id number] 3 INTRADUCTAL CARCINOMA IN SITU OF RIGHT BREAST 4 SEE RESULTS BELOW [id number] FLEX HD [id number] [facility] 09/26/19 [address]30 [id number] [facility] 09/26/19 1330 5 Because ethnic data is not always readily available, this report includes an eGFR for both -Americans and non- Americans. The National Kidney Disease Education Program (NKDEP) does not endorse the use of the MDRD equation for patients that are not between the ages of 18 and 70, are , have extremes of body size, muscle mass, or nutritional status, or are non- or non-. According to the National Kidney Foundation, irrespective of diagnosis, the stage of the disease is based on the level of kidney function: Stage Description GFR(mL/min/1.73 m(2)) 1 Kidney damage with normal or decreased GFR 90 2 Kidney damage with mild decrease in GFR 60-89 3 Moderate decrease in GFR 30-59 4 Severe decrease in GFR 15-29 5 Kidney failure <15 (or dialysis) 6 SEE RESULT BELOW Name: NATHALY CAMPOVERDE : [address]: Bre Murrieta MD Acct: [id number] Unit: [id number] AGE: 49 Location: OR Re08/08/19 SEX: F Status: DEP SDC SPEC: [id number] MARIFER: 08/08/19-1234 [facility] DR: Bre Murrieta MD REQ: [id number] RECD: 08/08/19 STATUS: ROBE CHAUHAN DR: Victor Manuel Vazquez MD _ ORDERED: LEVEL 5/2 FINAL DIAGNOSIS 1. Breast, right, lumpectomy: -- Ductal carcinoma in situ (DCIS), with: Size: Approximately 4 cm. Extent and distribution: DCIS is noted spanning over 12 slides, extensive. Architectural pattern: Papillary and cribriform. Nuclear grade: 2. Necrosis: Not seen. Margins: DCIS approaches to within less than 0.1 mm at multiple locations from superior to inferior along the medial anterior margin and to within 1 mm of the mid deep margin (slide 1F and G). Microinvasion: Not seen. ER/DE by immunohistochemistry with appropriate controls: ER: Positive, 3+, 100%. DE: Positive, 3+, 100%. Microcalcifications: Present in association with DCIS. Other findings: Not seen. pTNM histopathologic stage: pTis. 2. Breast, right, anterior superior to first specimen, excision: -- Ductal carcinoma in situ (DCIS), with: Size: Approximately 2.5 cm. Extent and distribution: DCIS is present through 8 of 11 slides. Architectural pattern: Papillary and cribriform. Nuclear grade: 2. Necrosis: Not seen. Margins: DCIS approaches to within 1 mm of the medial superior anterior margin (slide 2J). Other margins are clear by greater than 5 mm. Microinvasion: Not seen. ER/DE by immunohistochemistry with appropriate controls: ER: See part 1. DE: See part 1. Microcalcifications: Present in association with DCIS. Other findings: None. pTNM histopathologic stage: pTis. CONTINUED ON NEXT PAGE DEPARTMENT OF PATHOLOGY, [address] [place] [address] Stephen Franks M.D. Director [facility] # [id number] Comment: A small focus of DCIS within a sclerotic duct approaches to within less than 1 mm of the medial superior anterior margin of part 2 and to within less than 1 mm of the deep mid margin. PRE-OPERATIVE DIAGNOSIS Right breast intraductal carcinoma in situ; 1) short stitch randle superior margin, medium stitch randle medial margin, long stitch randle lateral margin, double stitch randle duct; 2) suture randle short superior, medium medial, long lateral, specimen is anteriosuperior to [facility] GROSS DESCRIPTION 1. The specimen is received fresh labeled, Right Breast Tissue, and consists of a 10.2 x 6.2 x 2.0 cm yellow-pink ovoid portion of fibrofatty soft tissue with four attached sutures which as per the accompanying requisition are designated as follows: short- superior, medium-medial, long-lateral and double-duct. The duct is located at the inferior-lateral specimen. There is a needle localization wire entering the specimen at the superior anterior-medial aspect and extending towards the deep margin. There is a 0.8 x 0.5 x 0.4 cm andino-pink dense to indurated focally cystic area associated with the localization wire, 0.5 cm from the deep margin and 0.7 cm from the mid superior anterior margin. The remaining cut surface consists of yellow lobulated adipose tissue with moderate interspersed andino-white to pink focally nodular fibrous tissue with a few focal cysts. The nodular fibrous tissue is more predominate within the superior specimen. The specimen is inked as follows: lateral half-blue, medial half-green, deep-black and duct-red, serially sectioned from superior to inferior and corporate sales representative sections are submitted in cassettes A through O to include nodularity in cassettes B and C (section associated with wire in cassette C) and duct in cassette O. 2. The specimen is received fresh labeled, Right Breast Tissue Anterior Superior to First Specimen, Suture Randle Short Superior, Medium Medial, Long Lateral, and consists of a 4.5 by up to 4.4 x 2.0 cm yellow ovoid focally cauterized portion of fibrofatty soft tissue with three attached sutures which are designated as follows: long-lateral, short- superior and medium-medial. There is a andino-white to pink ill-defined dense to focally indurated and cystic area measuring up to 3.4 cm at the inferior-anterior margin, 0.8 cm from the anterior superior margin. There is a 0.2 x 0.1 cm silver metallic cylindrical clip within this area. The remaining cut surface consists of yellow lobulated adipose tissue with scant interspersed andino-white fibrous tissue. The specimen is inked as follows: posterior superior-blue, anterior superior-green and inferior (cauterized)-black, serially sectioned from lateral to medial and corporate sales representative sections are submitted in cassettes A through J to include density in cassettes B through J including section associated with clip in cassette D. Signed by and Reported on: Stephen Franks MD 11/30 1617 END OF REPORT DEPARTMENT OF PATHOLOGY, [address] [place] [address] Stephen Franks M.D. Director [facility] # [id number] Procedures Date Code Description Status 09/26/2019 36796 Biopsy/Excision Deep Axillary Node(S) Completed 09/26/2019 Mastectomy Simple Complete Completed 09/26/2019 72507 Mastectomy Simple Complete Completed 09/17/2019 25364 EKG, Interpretation Only Completed 08/08/2019 Mastectomy Partial Completed 07/09/2019 [id number] Mammogram Completed 07/04/2019 [id number] Mammogram Completed Medical Devices Description No Information Available Encounters Type Date Location Provider Dx Diagnosis Office Visit 07/17/2019 Surgical Bre Murrieta, D05.11 Intraductal 1:[facility] carcinoma in situ of right breast Assessments Date Code Description Provider 12/11/2019 L03.313 Cellulitis of chest wall Sarah Mcgarry NP 12/11/2019 Z71.6 Tobacco abuse counseling Sarah Mcgarry NP 10/15/2019 D05.11 Intraductal carcinoma in situ of Bre Murrieta MD right breast 09/26/2019 D05.11 Intraductal carcinoma in situ of ROSEMARIE Perez right breast 09/26/2019 D05.11 Intraductal carcinoma in situ of Bre Murrieta MD right breast 09/17/2019 C50.919 Malignant neoplasm of unspecified Atiya Aaron M.D. site of unspecified female breast 09/03/2019 D05.11 Intraductal carcinoma in situ of Mary Lopez NP right breast 09/03/2019 Z01.818 Encounter for other preprocedural Mary Lopez NP examination 08/22/2019 D05.11 Intraductal carcinoma in situ of Bre Murrieta MD right breast 08/21/2019 D05.11 Intraductal carcinoma in situ of Bre Murrieta MD right breast 08/13/2019 D05.11 Intraductal carcinoma in situ of Noemí Moar MD right breast 08/08/2019 D05.11 Intraductal carcinoma in situ of Bre Murrieta MD right breast 07/17/2019 D05.11 Intraductal carcinoma in situ of Bre Murrieta MD right breast Plan of Treatment Future Appointment(s):12/18/2019 10:30 am - Sarah Mcgarry NP at [facility]/30/2020 - Sarah Mcgarry NPL03.313 Cellulitis of chest wallFollow up:1 weekZ71.6 Tobacco abuse counseling Functional Status Description No Information Available Mental Status Description No Information Available Referrals Refer to Reason for Referral Status Appt Date Skyla Vazquez M.D. Newly diagnosed right breast DCIS Closed 07/31/[address] [place], [place] [address] [phone] Victor Manuel Ruby MD Newly diagnosed right breast DCIS Closed [address] [place] [address] [phone]
[2020-01-16 14:22] LABS: ABS Basophils 0.1 10^3/ul (0-0.2); ABS Eosinophils 0.1 10^3/ul (0-0.6); ABS Lymphocytes 1.5 10^3/ul (1.0-4.8); ABS Monocytes 0.5 10^3/ul (0-0.8); ABS Neutrophils 7.5 10^3/ul (1.5-7.7); Eosinophil % 0.9 %; Hematocrit 37 % (35-47); Hemoglobin 12.6 g/dL (12.0-16.0); Lymphocyte % 15.6 %; Mean Corpuscular HGB Conc 34 g/dL (31-36); Mean Corpuscular Hemoglobin 31 pg (27-31); Mean Corpuscular Volume 89 fL (80-97); Mean Platelet Volume 7.5 fL (7.4-10.4); Platelet Count 216 10^3/uL (150-450); Red Blood Count 4.11 10^6 /uL (3.70-4.87); Red Cell Distribution Width 14 % (10-15); White Blood Count 9.8 10^3/uL (3.5-10.8)
[2020-01-16 14:37] LABS: Albumin/Globulin Ratio 1.5 (1-3); BUN/Creatinine Ratio 12.7 (8-20); C Reactive Protein 123.72 mg/L (<8.01); Calcium 9.3 mg/dL (8.6-10.3); EGFR African American 142.7 (>60); Globulin 2.7 g/dL (2-4); Potassium 3.3 mmol/L (3.5-5.0); Total Bilirubin 0.7 mg/dL (0.2-1.0); Total Protein 6.7 g/dL (6.4-8.9)
[2020-01-16] MEDS ORDERED: Acetaminophen TAB* 325 MG PO ONE (14:49)
[2020-01-16] MEDS ORDERED: NS 0.9% 1000 ML** 2,000 ML IV ONE (14:50)
[2020-01-16] MEDS ORDERED: Vancomycin(*) 1,000 MG VIAL IVPB SCH (15:00)
[2020-01-16] MEDS ORDERED: Piperacillin/Tazobac ADVAN(*) 3.375 GM in NS 0.9% 100 ML* 100 ML IVPB ONE (15:37)
[2020-01-16 15:57] LABS: Influenza A Molecular Negative (Negative); Influenza B Molecular Negative (Negative)
[2020-01-16] MEDS ORDERED: Vancomycin 1500 MG IV - x ONCE IVPB ONE ×2 (16:00)
[2020-01-16] MEDS ORDERED: NS 0.9% 250 ML* 250 ML ONE (16:08)
--- NOTE | 2020-01-16 16:35 | ED ---
Skin Complaint - HPI Summary HPI Summary: Patient is a 49yo F with a hx of ductal carcinoma presenting to the ED from Dr. Gore's office with concern for bilateral cellulitis. Per Dr. Gore, patient has been having fevers and chills with erythema to the bilateral breasts and now extending down to the abdomen wrapping around the R side body. Denies N/V/C/D. Denies cough or congestion. Has not been taking tylenol or ibuprofen for fevers at home. States she has been feeling very cold and unable to get warm. States she has been admitted for this in the past and has seen Dr. Grewal for same. Surgery date in Oct 2019. - History of Current Complaint Chief Complaint: EDRashSkinAbscess Time Seen by Provider: 01/16/20 14:47 Stated Complaint: FEVER INFECTION Hx Obtained From: Patient Onset/Duration: Started Hours Ago Skin Exposure Onset/Duration: Hours Ago Timing: Constant Onset Severity: Mild Current Severity: Mild Pain Intensity: 0 Pain Scale Used: 0-10 Numeric Skin Location: Other: - bilateral breast cellulitis Character: Pain, Redness Aggravating Symptom(s): Nothing Alleviating Symptom(s): Nothing Associated Signs & Symptoms: Negative - Allergy/Home Medications Allergies/Adverse Reactions: Allergies Allergy/AdvReac Type Severity Reaction Status Date / Time Adhesive Tape Allergy blister, Verified 01/16/20 15:27 [Tegaderm Dressing] red and itchy Home Medications: Home Medications Levothyroxine TAB* [Synthroid 150 MCG TAB*] 125 mcg PO QAM 05/09/15 [History Confirmed 01/16/20] Acetaminophen [Acetaminophen Extra Strength] 2 tab PO ONCE PRN 11/24/19 [ History Confirmed 01/16/20] Antibiotic Cream 1 applic TOPICAL BID 11/24/19 [History Confirmed 01/16/20] DOXYcycline CAP(*) [DOXYcycline 100MG CAP(*)] 100 mg PO BID 11/24/19 [History Confirmed 01/16/20] Levofloxacin TAB* [Levaquin TAB*] 750 mg PO 1200 11/24/19 [History Confirmed 05/01] PMH/Surg Hx/FS Hx/Imm Hx Previously Healthy: Yes Endocrine/Hematology History: Denies: Hx Anticoagulant Therapy, Hx Bone Marrow Disease, Hx Diabetes, Hx Sickle Cell Disease, Hx Thyroid Disease - not diagnosed, tsh low today on labs, Hx Anemia Cardiovascular History: Denies: Hx Hypertension, Hx Pacemaker/ICD, Other Cardiovascular Problems/ Disorders Respiratory History: Reports: Hx Sleep Apnea - DIAGNOSED BUT DOES NOT HAVE CPAP , DIDN'T FOLLOW UP Denies: Hx Asthma, Hx Chronic Obstructive Pulmonary Disease (COPD), Other Respiratory Problems/Disorders GI History: Reports: Hx Gastroesophageal Reflux Disease Denies: Other GI Disorders History: Denies: Hx Renal Disease, Other Problems/Disorders Musculoskeletal History: Reports: Hx Arthritis - ELBOWS, FINGERS, Hx Orthopedic Injury - HX OF ACLS ON KNEES " 3 YEARS AGO" Denies: Hx Osteoporosis, Other Musculoskeletal History Sensory History: Denies: Hx Cataracts, Hx Contacts or Glasses, Hx Glaucoma, Hx Hearing Aid Opthamlomology History: Denies: Hx Cataracts, Hx Contacts or Glasses, Hx Glaucoma Neurological History: Denies: Hx Dementia, Hx Seizures, Other Neuro Impairments/Disorders Psychiatric History: Reports: Hx Anxiety, Hx Depression, Hx Inpatient Treatment - [facility] X1 FEBRUARY 2013, Hx Suicide Attempt Denies: Hx Eating Disorder, Hx of Violent Episodes Against Others, Hx Substance Abuse - Cancer History Hx Chemotherapy: No Hx Radiation Therapy: No - Surgical History Surgery Procedure, Year, and Place: ectopic ( APPROX. 1996), left acl repair, tonsillectomy Hx Anesthesia Reactions: Yes - SEVERE N/V POST OP, PT REQUESTING ANTIEMETIC PRE- OP - Immunization History Hx Pertussis Vaccination: No Immunizations Up to Date: Yes Infectious Disease History: No Infectious Disease History: Denies: Hx Hepatitis, Hx Human Immunodeficiency Virus (HIV), Traveled Outside the [place] in Last 30 Days - Family History Known Family History: Positive: Other Family History: Depression. EtOH dependence - Social History Occupation: Employed Full-time Lives: With Family Alcohol Use: Rare Alcohol Amount: 2-3 DRINKS/MONTH Hx Substance Use: Yes Substance Use Type: Reports: None Hx Tobacco Use: Yes Smoking Status (MU): Heavy Every Day Tobacco Smoker Type: Cigarettes Amount Used/How Often: 1 PPD FOR 25 YRS Length of Time of Smoking/Using Tobacco: 25 YRS Have You Smoked in the Last Year: Yes Review of Systems Negative: Fever, Chills, Fatigue, Skin Diaphoresis Negative: Palpitations, Chest Pain Negative: Shortness Of Breath, Cough Negative: Arthralgia, Myalgia Positive: Other - bilateral erythema to the breasts with erythema and warmth extending around the R side body Negative: Anxious, Depressed All Other Systems Reviewed And Are Negative: Yes Physical Exam Triage Information Reviewed: Yes Vital Signs On Initial Exam: Initial Vitals Temp Pulse Resp BP Pulse Ox 99.2 F 115 16 118/78 98 01/16/20 11:56 01/16/20 11:56 01/16/20 11:56 01/16/20 11:56 01/16/20 11:56 Vital Signs Reviewed: Yes Appearance: Positive: Well-Appearing, Well-Nourished Skin: Positive: Warm, Skin Color Reflects Adequate Perfusion, Other - bilateral erythema to the breasts with erythema and warmth extending around the R side body Head/Face: Positive: Normal Head/Face Inspection Eyes: Positive: EOMI, CARRILLO, Conjunctiva Clear Neck: Positive: Supple, No Lymphadenopathy Respiratory/Lung Sounds: Positive: Clear to Auscultation, Breath Sounds Present Cardiovascular: Positive: RRR, Pulses are Symmetrical in both Upper and Lower Extremities Musculoskeletal: Positive: Normal, Strength/ROM Intact Neurological: Positive: Speech Normal Psychiatric: Positive: Normal, Affect/Mood Appropriate Procedures - Sedation Patient Received Moderate/Deep Sedation with Procedure: No Diagnostics - Vital Signs Vital Signs Temp Pulse Resp BP Pulse Ox 01/16/20 16:30 98.4 F 01/16/20 16:11 99.2 F 78 17 120/68 96 01/16/20 14:14 101.5 F 80 16 113/70 95 01/16/20 11:56 99.2 F 115 16 118/78 98 - Laboratory Lab Results: Lab Results 01/16/20 01/16/20 01/16/20 Range/Units 14:05 14:05 14:05 WBC 9.8 (3.5-10.8) 10^3/uL RBC 4.11 (3.70-4.87) 10^6 /uL Hgb 12.6 (12.0-16.0) g/dL Hct 37 (35-47) % MCV 89 (80-97) fL MCH 31 (27-31) pg MCHC 34 (31-36) g/dL RDW 14 (10-15) % Plt Count 216 (150-450) 10^3/uL MPV 7.5 (7.4-10.4) fL Neut % (Auto) 77.1 % Lymph % (Auto) 15.6 % [place] % (Auto) 5.6 % Eos % (Auto) 0.9 % Baso % (Auto) 0.8 % Absolute Neuts (auto) 7.5 (1.5-7.7) 10^3/ul Absolute Lymphs (auto) 1.5 (1.0-4.8) 10^3/ul Absolute Monos (auto) 0.5 (0-0.8) 10^3/ul Absolute Eos (auto) 0.1 (0-0.6) 10^3/ul Absolute Basos (auto) 0.1 (0-0.2) 10^3/ul Absolute Nucleated RBC 0.0 10^3/ul Nucleated RBC % 0.0 Sodium 136 (135-145) mmol/L Potassium 3.3 L (3.5-5.0) mmol/L Chloride 103 (101-111) mmol/L Carbon Dioxide 26 (22-32) mmol/L Anion Gap 7 (2-11) mmol/L BUN 7 (6-24) mg/dL Creatinine 0.55 (0.51-0.95) mg/dL Est GFR ( Amer) 142.7 (>60) Est GFR (Non-Af Amer) 118.0 (>60) BUN/Creatinine Ratio 12.7 (8-20) Glucose 117 H (70-100) mg/dL Lactic Acid 0.9 (0.5-2.0) mmol/L Calcium 9.3 (8.6-10.3) mg/dL Total Bilirubin 0.70 (0.2-1.0) mg/dL AST 12 L (13-39) U/L ALT 12 (7-52) U/L Alkaline Phosphatase 70 (34-104) U/L C-Reactive Protein 123.72 H (<8.01) mg/L Total Protein 6.7 (6.4-8.9) g/dL Albumin 4.0 (3.2-5.2) g/dL Globulin 2.7 (2-4) g/dL Albumin/Globulin Ratio 1.5 (1-3) Influenza A (Rapid) (Negative) Influenza B (Rapid) (Negative) 01/16/20 Range/Units 15:35 WBC (3.5-10.8) 10^3/uL RBC (3.70-4.87) 10^6 /uL Hgb (12.0-16.0) g/dL Hct (35-47) % MCV (80-97) fL MCH (27-31) pg MCHC (31-36) g/dL RDW (10-15) % Plt Count (150-450) 10^3/uL MPV (7.4-10.4) fL Neut % (Auto) % Lymph % (Auto) % [place] % (Auto) % Eos % (Auto) % Baso % (Auto) % Absolute Neuts (auto) (1.5-7.7) 10^3/ul Absolute Lymphs (auto) (1.0-4.8) 10^3/ul Absolute Monos (auto) (0-0.8) 10^3/ul Absolute Eos (auto) (0-0.6) 10^3/ul Absolute Basos (auto) (0-0.2) 10^3/ul Absolute Nucleated RBC 10^3/ul Nucleated RBC % Sodium (135-145) mmol/L Potassium (3.5-5.0) mmol/L Chloride (101-111) mmol/L Carbon Dioxide (22-32) mmol/L Anion Gap (2-11) mmol/L BUN (6-24) mg/dL Creatinine (0.51-0.95) mg/dL Est GFR ( Amer) (>60) Est GFR (Non-Af Amer) (>60) BUN/Creatinine Ratio (8-20) Glucose (70-100) mg/dL Lactic Acid (0.5-2.0) mmol/L Calcium (8.6-10.3) mg/dL Total Bilirubin (0.2-1.0) mg/dL AST (13-39) U/L ALT (7-52) U/L Alkaline Phosphatase (34-104) U/L C-Reactive Protein (<8.01) mg/L Total Protein (6.4-8.9) g/dL Albumin (3.2-5.2) g/dL Globulin (2-4) g/dL Albumin/Globulin Ratio (1-3) Influenza A (Rapid) Negative (Negative) Influenza B (Rapid) Negative (Negative) Result Diagrams: 01/16/20 14:05 01/16/20 14:05 Lab Statement: Any lab studies that have been ordered have been reviewed, and results considered in the medical decision making process. Course/Dx - Course Course Of Treatment: Physical examination, patient has erythema to the bilateral breasts with erythema to the right side body wrapping around to the right flank. Febrile at 101. Patient was given Tylenol in the ED. She was also given fluids, Zosyn and vancomycin. Patient denies any pain. Blood cultures pending. Flu negative. Discussed with hospitalist who will admit for further eval. - Differential Diagnoses - Skin Complaint Differential Diagnoses: Other - mastitis, fluid retention, abscess - Diagnoses Provider Diagnoses: Cellulitis - Physician Notifications Discussed Care Of Patient With: Delia Gonzalez Instructed by Provider To: Will See In ED Discharge ED - Sign-Out/Discharge Documenting (check all that apply): Patient Departure - Discharge Plan Condition: Fair Disposition: ADMITTED TO [facility] Referrals: Virgen Vegas PA [Primary Care Provider] - - Billing Disposition and Condition Condition: FAIR Disposition: Admitted to [facility]
[2020-01-16] MEDS ORDERED: Acetaminophen TAB* 325 MG PO PRN (17:10)
[2020-01-16] MEDS ORDERED: NS 0.9% 1000 ML** 1,000 ML IV SCH (17:15)
[2020-01-16] MEDS ORDERED: Vancomycin per Pharmacy* NOTE FOLLOW UP SCH (18:00)
[2020-01-16] MEDS ORDERED: Enoxaparin(*) 40 MG/0.4 ML SYR SUBCUT SCH (20:00)
--- NOTE | 2020-01-16 20:06 | HP ---
CC: ROSEMARIE Enriquez * HISTORY AND PHYSICAL: DATE OF ADMISSION: 01/16/20 PROVIDER: Christina Herrera NP PRIMARY CARE PROVIDER: ROSEMARIE Enriquez ATTENDING PHYSICIAN WHILE IN THE HOSPITAL: Dr. Delia Gonzalez * (dictated by Christina Herrera NP). CHIEF COMPLAINT: Redness to right breast area and the chest. HISTORY OF PRESENT ILLNESS: Ms. Sanchez is a 49-year-old female with past medical history significant for ductal carcinoma, status post bilateral mastectomy; hypothyroid; Graves disease, who presented to the emergency room from Dr. Gore's office with complaints of bilateral breast cellulitis. The patient reports that 2 days ago, she noticed redness starting to the right side of her chest and yesterday developed fever and chills. The fever and chills continued today, so she presented to Dr. Gore and was sent to the emergency room for further evaluation. The patient does report that she had a bilateral mastectomy and in November of this year, she did develop an infection in the left breast and had to have revision of the left breast mastectomy. The patient reports that she has been doing well since her revision. The patient does report fever and chills. She denies any chest pain, edema, cough, hemoptysis, shortness of breath. She denies any nausea, vomiting, diarrhea, abdominal pain, hematuria, dysuria, focal weakness, sensory loss, dysphagia, arthralgias, myalgias. She does complain of redness to the right breast. Denies any psychosis or anxiety. While in the emergency room, the patient had routine lab work, it did not show any leukocytosis. She did have a fever of 101.5 and heart rate of 115. Due to her cellulitis, Hospital Medicine was asked to see and evaluate her for admission. PAST MEDICAL HISTORY: Significant for: 1. Ductal carcinoma. 2. Hypothyroid. 3. Graves disease. PAST SURGICAL HISTORY: 1. Bilateral mastectomy. 2. Left breast revision in November of 2019. 3. Tonsillectomy. 4. Ectopic surgery. 5. Left ACL repair. MEDICATIONS: Home medications include levothyroxine 125 mcg p.o. daily. ALLERGIES: No known drug allergies. FAMILY HISTORY: Father had an CO at the age of 51 and . No reported history of diabetes or cancer in the family. SOCIAL HISTORY: The patient smokes a pack per day. Denies any alcohol or illicit drug use. She is . Surrogate decision maker in the event she is unable to make her own decisions is her sister. She is a DNR/DNI. MOLST form was completed and placed on the chart. REVIEW OF SYSTEMS: An 11-point review of systems was completed. All pertinent positives are mentioned in the HPI. PHYSICAL EXAMINATION GENERAL: At this time, Ms. Sanchez is alert and oriented, resting on a stretcher in the emergency room. She is in no acute distress. VITAL SIGNS: Blood pressure is 120/68, heart rate is currently 78, respirations are 17, O2 saturation 96%, temperature was 99.2. HEENT: Head is atraumatic, normocephalic. Eyes, EOMs are intact. Sclerae anicteric and not pale. Oral mucosa is moist. NECK: Supple. LUNGS: Clear to auscultation bilaterally. No wheezes, rales, or rhonchi. CHEST: The patient does have redness that extends from her right mastectomy site to her axillary and posterior back on the right side. She does have mild redness on the left. CARDIAC: S1, S2. Regular rate and rhythm. No murmurs, rubs or gallops. ABDOMEN: Soft and nontender. Bowel sounds are present x4. EXTREMITIES: She is able to to move all 4 extremities. There is no clubbing or cyanosis. NEUROLOGIC: She is awake, alert and oriented x3. SKIN: She does have redness to her right mastectomy site extending to the right axilla and to the right posterior back. LABORATORY DATA AND DIAGNOSTIC STUDIES: WBCs are 9.8, RBCs 4.11, hemoglobin 12.6, hematocrit is 37, platelet count is 216. Sodium 136, potassium 3.3, chloride 103, carbon dioxide 26, anion gap was 7, BUN was 7, creatinine 0.55, glucose is 117, lactic acid 0.9, calcium 9.3, total bilirubin 0.70, ASTs are 12 , ALTs 12, alkaline phosphatase is 70, C-reactive protein was 123.72. Flu A and B were negative. IMPRESSION AND PLAN: Ms. Sanchez is a 49-year-old female with past medical history significant for ductal carcinoma, Graves disease, hypothyroid, who presented to the emergency room with bilateral mastectomy site cellulitis. She will be admitted inpatient for: 1. Cellulitis. The patient does have bilateral mastectomy site cellulitis, right worse than left. She does have a history of infection in the left breast post mastectomy recently in November of this year. At that time, her culture grew Strep mitis and Strep oralis, which was susceptible to cefepime and vancomycin and intermediate to penicillins. The patient has experienced fever and chills overnight. She does not currently have a white count. At that time , she did receive Zosyn and vancomycin in the emergency room. I am going to continue her vancomycin and change her to cefepime. We will repeat a CBC and BMP in the a.m. and continue to monitor her sites. She has no open areas currently. Blood cultures are currently pending. 2. Sepsis. The patient did meet sepsis criteria with tachycardia and a fever of 101.5. The patient's lactic acid was negative. I am going to continue her on IV fluids 1 L at 75 cc per hour. We will continue her on vancomycin and cefepime while blood cultures are currently pending. 3. Hypothyroid. She is to continue on levothyroxine 125 mcg p.o. daily. 4. FEN: She can have a regular diet. 5. Code status: She is a DNR/DNI. MOLST form was completed and placed on the chart. 6. DVT prophylaxis: I will place her on Lovenox subcu. TIME SPENT: Time spent on this admission was 60 minutes. Greater than half that time was spent at the bedside reviewing events leading thus far to her hospitalization, performing physical exam and reviewing my plan of care. I have discussed this with my attending, Dr. Delia Gonzalez, she is in agreement with my plan. CHRISTINA HERRERA, LOG POND WORKER [id number]/[facility] #: [id number] NEYDA
[2020-01-16] MEDS: Cefepime 2 GM in Dextrose(*) 2 GM/50 ML BAG IV SCH (21:23)
[2020-01-17] MEDS: Vancomycin(*) 1,250 MG in NS 0.9% 250 ML* 250 ML IVPB SCH ×2 (00:23→08:21)
[2020-01-17 05:09] LABS: ABS Basophils 0.1 10^3/ul (0-0.2); ABS Eosinophils 0.2 10^3/ul (0-0.6); ABS Lymphocytes 1.2 10^3/ul (1.0-4.8); ABS Monocytes 0.7 10^3/ul (0-0.8); ABS Neutrophils 6.4 10^3/ul (1.5-7.7); Eosinophil % 2.5 %; Hematocrit 34 % (35-47); Hemoglobin 11.7 g/dL (12.0-16.0); Lymphocyte % 13.8 %; Mean Corpuscular HGB Conc 34 g/dL (31-36); Mean Corpuscular Hemoglobin 31 pg (27-31); Mean Corpuscular Volume 90 fL (80-97); Platelet Count 204 10^3/uL (150-450); Red Blood Count 3.81 10^6 /uL (3.70-4.87); Red Cell Distribution Width 14 % (10-15); White Blood Count 8.6 10^3/uL (3.5-10.8)
[2020-01-17 05:27] LABS: BUN/Creatinine Ratio 15.4 (8-20); Calcium 8.7 mg/dL (8.6-10.3); EGFR African American 212.2 (>60); EGFR Non-African American 175.4 (>60); Potassium 3.5 mmol/L (3.5-5.0)
[2020-01-17] MEDS ORDERED: Levothyroxine TAB* 125 MCG TAB PO SCH (06:00)
[2020-01-17] MEDS ORDERED: Cefepime 2 GM in Dextrose(*) 2 GM/50 ML BAG IV SCH (10:30)
--- NOTE | 2020-01-17 10:35 | CONS ---
CC: Bre Murrieta MD; Skyla Vazquez MD; ROSEMARIE Enriquez; Forrest Iraheta MD * PLASTIC SURGERY CONSULTATION: DATE OF CONSULT: 01/17/20 REASON FOR CONSULTATION: Chest cellulitis, possible infection of breast tissue parts counter associate. SUMMARY: The patient is a 49-year-old female who is status post bilateral mastectomy and immediate reconstruction with tissue expanders and acellular dermal matrix on 09/26/19. She is a chronic smoker who was unable to quit perioperatively. She developed 2 non-healing areas in the left mastectomy flap closure wound which required surgical excision and closure on 11/25/19. At that time, the open wounds were noted to extend down to the acellular dermal matrix, but no exposure of the left tissue parts counter associate was noted. Cultures were taken of the wound at that time, which grew Strep mitis/Strep oralis. She was placed on oral Levaquin and doxycycline. Infectious disease consultation was obtained. She completed a course of the oral antibiotics and clinically was doing well. I started expanding the tissue expanders, but the patient then reported that she was not sure, that she wanted the breast reconstruction now. She stated that she was happy with a flat chest and not having to wear a bra and was considering having the tissue expanders removed. She reported to my office yesterday with 2-day history of redness and tenderness in her chest more so on the left side. She started developing chills yesterday and felt very tired. I saw her in my office yesterday and her tympanic temperature was 102.5 , heart rate was 100, blood pressure was 130/90. There was localized tenderness over the left tissue parts counter associate and some mild increased warmth and mild redness noted. She was sent to the emergency room for further evaluation. Her white blood cell count was 9.8. Her C-reactive protein was elevated again at 124. She was admitted with a diagnosis of cellulitis and started on IV vancomycin and cefepime. Today, the patient reports she is feeling much better, does not feel as tired, does not have as much pain in her chest. She is afebrile today. Her white blood cell count is 8.6 today. Both breasts still feel slightly warm to touch, but the tenderness in the left breast is decreased. I have discussed the treatment alternatives, possible benefits, and material risk in detail with the patient. She has decided that she wants the tissue expanders and the acellular dermal matrix completely removed on both sides permanently and does not want breast reconstruction. I currently have her scheduled to do the surgery on 01/20/20, in the afternoon. If she is still in the hospital, we will do it as an inpatient, if she is able to be discharged before that, then we can likely do the surgery as an outpatient. In the interim, I agree with the intravenous antibiotics. I would recommend infectious disease consultation with Dr. Iraheta for further recommendations on antibiotic choice, particularly as an outpatient, and recommendations for length of antibiotic treatment. I will follow along with you. [id number]/[facility] #: [id number] NEYDA
[2020-01-17] MEDS: Cefepime 2 GM in Dextrose(*) 2 GM/50 ML BAG IV SCH (11:13)
[2020-01-17 11:44] LABS: Urine Appearance Cloudy; Urine Bilirubin Negative (Negative); Urine Blood 2+ (Negative); Urine Color Yellow; Urine Glucose Negative (Negative); Urine Ketones Negative (Negative); Urine Nitrite Negative (Negative); Urine Protein Negative (Negative); Urine Specific Gravity 1.014 (1.010-1.030); Urine Urobilinogen Negative (Negative)
[2020-01-17 11:46] LABS: Urine Bacteria Absent (Absent); Urine Red Blood Cell 3+(>10/hpf) (Absent); Urine Squamous Epithelial Cell Present (Absent); Urine White Blood Cell 2+(11-20/hpf) (Absent)
[2020-01-17] MEDS ORDERED: Vancomycin Trough Check NOTE FOLLOW UP ONE (15:30)
[2020-01-17 15:58] LABS: EGFR African American 189.6 (>60); EGFR Non-African American 156.7 (>60)
[2020-01-17 16:09] LABS: Vancomycin Trough 10.2 mcg/mL
[2020-01-17 17:00] VITALS: BP 115/92
--- NOTE | 2020-01-18 12:46 | DS ---
CC: Dr. Gore * DISCHARGE SUMMARY: DATE OF ADMISSION: 01/16/20 DATE OF DISCHARGE: 01/17/20 PROVIDER: ROSEMARIE Dumont ATTENDING PHYSICIAN WHILE IN THE HOSPITAL: Dr. Latonya Sutton * (dictated by ROSEMARIE Dumont). PLASTIC SURGEON: Dr. Gore. PRIMARY DIAGNOSIS: Cellulitis of the breast bilaterally, primarily on the right breast. SECONDARY DIAGNOSES: 1. Ductal carcinoma, status post bilateral mastectomy with revision of the left breast mastectomy with expanders in place. 2. Hypothyroidism. 3. Graves disease. PERTINENT STUDIES WHILE IN THE HOSPITAL: Breast ultrasound on 01/17/20, impression: Bilateral extensive postmastectomy chest wall dermal and subcutaneous edema. No loculated abscess collection is visualized. Bilateral tissue expanders in place. No mass, lesions, or lymphadenopathy evident. PERTINENT LAB DATA: White blood cell count on admission 9.8. Influenza A and B negative. HISTORY OF PRESENT ILLNESS/HOSPITAL COURSE: Nathaly Sanchez is a 49-year-old white female with past medical history significant for hypothyroidism and ductal carcinoma, status post bilateral mastectomy with revision of the left breast mastectomy with washout, with bilateral tissue expanders in place, who presented to the emergency department upon direction of Dr. Gore on due to erythema of the breast as well as fevers. The patient presented with erythema of bilateral breasts with worsening on the right breast, which did extend into the axillary area and into the right back. The patient was admitted to the hospital as she did have signs of sepsis secondary to the cellulitis with fever and tachycardia. By the date of discharge, all SIRS criteria resolved. She was admitted with empiric coverage with cefepime and vancomycin. I believe that she does not need pseudomonas or MRSA coverage. I did discuss this with Dr. Gore, who agreed, but he did recommend the consultation with Dr. Iraheta, who I did discuss the case with, and he was agreeable with the plan of antibiotics as below. The patient did have a washout of her breast excision in November after surgical complications and this grew Strep mitis and Strep oralis, which were resistant to tetracycline, azithromycin , and erythromycin. The patient's erythema was greatly improved by day of discharge. She was no longer febrile. Her chest wall pain was feeling much under better control and was feeling comfortable for discharge. The patient had an ultrasound of the breast to rule out abscess with the results as described above. PHYSICAL EXAMINATION ON THE DAY OF DISCHARGE: General: Young, white female, sitting upright in bed, appearing comfortable in no acute distress. Eyes: PERRLA. Sclerae anicteric. ENT: Mucosa membranes moist. Lungs: Clear to auscultation. Cardio: Regular rate and rhythm without murmurs, rubs or gallops. Abdomen: Soft, nontender, nondistended. Extremities: No clubbing, cyanosis or edema. Neuro: The patient is alert and oriented x3. Skin: Faint erythema to the right breast, not extending into the axilla or to the back, which is a sign of improvement. No erythema noted to the left breast. Tissue expanders are palpable bilaterally. No obvious fluctuance with palpation. No tenderness to palpation. No purulent drainage from scarring sites bilaterally. DISCHARGE PLAN: Dr. Gore plans to operate on the patient on Sunday, 01/19, to remove her tissue expanders. The patient was advised to start antibiotics and to continue them until followup with Dr. Gore. She is advised to please return to the emergency department if she is experiencing worsening erythema streaking up her extremities, fever, chills, discharge from her wounds or other concerning symptoms. The patient will be calling Dr. Gore's office on Sunday01/19/20 for further details regarding the planning of her surgery. ACTIVITY: The patient may return to normal activity as tolerated. DIET: The patient may return to regular diet. DISCHARGE MEDICATIONS: New Medications: 1. Tylenol 650 mg p.o. q.4 hours p.r.n. pain. 2. Keflex 500 mg p.o. 4 times a day. Continued Home Medications: Synthroid 125 mcg p.o. daily. CONDITION ON DISCHARGE: Stable. DISPOSITION: Home. TIME SPENT: Approximately 35 minutes was spent on this discharge, approximately half of that time was spent at bedside evaluating the patient and discussing the plan of care. ROSEMARIE DUMONT [id number]/[facility] #: [id number] [place]DA
== END 2020-01-17 18:30 | disposition home or self-care (01) | DRG 720 ==
LOC: ED 11:54 → MED 17:10
PROVIDERS: ADMIT Internal Medicine; ATTEND Internal Medicine
DX: A41.9 Sepsis, unspecified organism (principal); G47.30 Sleep apnea, unspecified; K21.9 Gastro-esophageal reflux disease without esophagitis; M19.022 Primary osteoarthritis, left elbow; M19.021 Primary osteoarthritis, right elbow; M19.042 Primary osteoarthritis, left hand; M19.041 Primary osteoarthritis, right hand; F41.9 Anxiety disorder, unspecified; F32.9 Major depressive disorder, single episode, unspecified; F17.210 Nicotine dependence, cigarettes, uncomplicated; E03.9 Hypothyroidism, unspecified; Z66 Do not resuscitate; N61.0 Mastitis without abscess; Z90.13 Acquired absence of bilateral breasts and nipples; Z28.21 Immunization not carried out because of patient refusal; Z85.3 Personal history of malignant neoplasm of breast; Z91.5 Personal history of self-harm
CPT/HCPCS: 36415; 80048; 80053; 80202; 81003; 81015; 82565; 83605; 84520; 85025; 86140; 87040; 87086; 96361; 96365; 99285; A9270-GY; J0692; J1650; J2543; J3370

== ENCOUNTER → 2020-01-20 12:42 | Day surgery (SDC) | payer BC ==
[~2020-01-20 12:42] MED LIST changes: +Bupivacaine 0.25% SDV* 30 ML ONE; +Dexamethasone IV* 4 MG/ML 1 ML (4 MG) ONE; +DiMENhydriNATE IV* 50 MG/ML VIAL IV PUSH PRN; +Famotidine IV* 10 MG/ML 2 ML (20 mg) IV ONE; +Famotidine IV* 10 MG/ML 2 ML (20 mg) ONE; +HYDROmorphone INJ1* 1 MG/ML SYRINGE IV PRN; +Heparin VIAL(*) 5000 UNITS/ML VIAL (FIVE THOUSAND) ONE; +KETAMINE HCL* 50 MG/ML 10 ML VIAL ONE; +Lactated Ringers 1000 ML Bag* 1,000 ML IV SCH; +Lidocaine 2% PF * 5 ML VIAL ONE; +Midazolam* 1 MG/ML 5 ML VIAL (5 MG) ONE; +Naloxone* 0.4 MG/ML 1 ML VIAL IV PRN; +Ondansetron INJ* 2 MG/ML VIAL ONE; +Propofol* 10 MG/ML 20 ML BTL ONE; +Scopolamine 1.5 mg* PATCH ONE; +ceFAZolin 2 GM PREMIX in ORs 2 GM/50 ML BAG ONE; +ceFAZolin VIAL(*) VIAL ONE; +fentaNYL* 50 MCG/ML 2 ML VIAL (100 MCG VIAL) IV PRN; +fentaNYL* 50 MCG/ML 2 ML VIAL (100 MCG VIAL) ONE; +oxyCODONE/Acetamin 5/325 MG* TAB PO PRN
[2020-01-20 20:09] VITALS: BP 102/74
--- NOTE | 2020-01-22 00:13 | OP ---
CC: Dr. Bre Murrieta; Dr. Skyla Vazquez; ROSEMARIE Enriquez; Forrest Iraheta MD * DATE OF OPERATION: 01/20/20 - [facility] DATE OF : 72 SURGEON: Osito Gore MD. TYPECASTING MACHINE OPERATOR: SUSAN Araujo. ANESTHESIOLOGIST: Rommel Humphrey MD. ANESTHESIA: General. PRE-OP DIAGNOSES: Status post bilateral mastectomy and tissue gmat tutor reconstruction. POST-OP DIAGNOSES: Status post bilateral mastectomy and tissue gmat tutor reconstruction. OPERATIVE PROCEDURE: Bilateral breast open capsulectomy with removal of bilateral tissue expanders and acellular dermal matrix. ESTIMATED BLOOD LOSS: 150 cc. SPECIMENS: 1. Bilateral mastectomy scars. 2. Periprosthetic capsules. 3. Bilateral breast tissue expanders. DRAINS: Two 10 mm flat Hermelindo-Wiley. COMPLICATIONS: None. INDICATIONS: Ms. Sanchez is a 49-year-old female who is status post bilateral mastectomy and tissue gmat tutor reconstruction on 09/26/19. Postoperative course was complicated by delayed healing requiring surgical revision on the left breast. She has had recurrent problems with infections in the left breast. She now requests removal of both tissue expanders. DESCRIPTION OF PROCEDURE: The patient was taken to the operating room and placed on the operating room table in the supine position. General anesthesia was induced by Dr. Humphrey. Bilateral breasts and anterolateral chest areas were prepped with ChloraPrep solution and draped sterilely. The right mastectomy scar was excised with a scalpel. Dissection was continued through the subcutaneous tissues and the periprosthetic capsule opened transversely. No unusual fluid was noted in the capsule. Aerobic and anaerobic swab cultures were taken in the capsule. The tissue gmat tutor was removed and noted to be intact. Fluid inside the tissue gmat tutor appeared clear. The acellular dermal matrix appeared very well incorporated. A subtotal capsulectomy was performed removing the entire anterior capsule including the acellular dermal matrix. The peripheral portions of the posterior capsule were removed as well, but the central portion of the capsule was very adherent to the chest wall and this was left in place to avoid any potential injury to this area, including pneumothorax. Attention was then turned towards the left breast. Similar procedure was performed excising the mastectomy scar. The periprosthetic capsule was opened and a small amount of yellow serous fluid was encountered, and aerobic and anaerobic cultures were sent. The tissue gmat tutor was removed and noted to be intact. The fluid inside the tissue gmat tutor appeared clear. While the acellular dermal matrix appeared adherent to the underside of inferior mastectomy flap, it did not appear nearly as well incorporated as on the right side and was able to be mostly peeled off with minimal dissection. A subtotal capsulectomy was performed in analogous fashion to the right side, removing the entire anterior capsule and the peripheral portions of the posterior capsule leaving the central posterior capsule intact in place. Both mastectomy wounds were then irrigated using pulsatile jet lavage with saline containing 1 g Ancef per liter. A total of 1 L was used on the right side and 2 L on the left side. Hemostasis was obtained with electrocautery. A single 10 mm flat Hermelindo-Wiley drain was placed in each mastectomy wound and brought out through the lateral chest skin and sutured on both sides with 3-0 Prolene sutures. Mastectomy wounds were then closed in layers using buried interrupted sutures of 2- 0 Vicryl in the subcutaneous and deep dermal layers and then the skin closed with running subcuticular sutures of 3-0 Vicryl. Several interrupted skin sutures of 5- 0 Vicryl Rapide were also placed. DermaFlex tissue glue was then applied to the surface. The wounds were then dressed with Xeroform gauze, fluff gauze, and circumferential Harman wrap dressing applied. The patient tolerated the procedure well. There were no complications. All counts were reported as correct at the end of the procedure. The patient was taken to the recovery area in stable postoperative condition. [id number] #: [id number] NEYDA
== END | disposition home or self-care (01) ==
LOC: OR 12:42
PROVIDERS: ATTEND Plastic Surgery
DX: T85.79XA Infection and inflammatory reaction due to other internal prosthetic devices, implants and grafts, initial encounter (principal); E03.9 Hypothyroidism, unspecified; K21.9 Gastro-esophageal reflux disease without esophagitis; F17.210 Nicotine dependence, cigarettes, uncomplicated; G47.33 Obstructive sleep apnea (adult) (pediatric); F41.8 Other specified anxiety disorders; E05.00 Thyrotoxicosis with diffuse goiter without thyrotoxic crisis or storm; D64.9 Anemia, unspecified; Z90.13 Acquired absence of bilateral breasts and nipples; Z85.3 Personal history of malignant neoplasm of breast
CPT/HCPCS: 81025; 87070; 87073; 87205; 88300; 88305; A9270-GY; J0690; J1100; J1644; J2250; J2405; J2704; J3010; J3490

== ENCOUNTER 2022-01-21 10:49 | Inpatient (IN) ==
[2022-01-21] MEDS ORDERED: Al Hydrox/Mg Hydrox/Simet LIQ 30 ML UDC PO PRN (23:14)
[2022-01-22] MEDS: Vitamin THERAPEUTIC TAB PO SCH (09:43)
[2022-01-22] MEDS: Nicotine PATCH 14 MG/24 HR PATCH TRANSDERM SCH (09:43)
[2022-01-22 16:25] LABS: ABS Basophils 0.1 10^3/ul (0-0.2); ABS Eosinophils 0.2 10^3/ul (0-0.6); ABS Lymphocytes 2.5 10^3/ul (1.0-4.8); ABS Monocytes 0.5 10^3/ul (0-0.8); ABS Neutrophils 2.5 10^3/ul (1.5-7.7); Eosinophil % 4.2 %; Hematocrit 42 % (35-47); Hemoglobin 13.6 g/dL (12.0-16.0); Lymphocyte % 43.4 %; Mean Corpuscular HGB Conc 33 g/dL (31-36); Mean Corpuscular Hemoglobin 31 pg (27-31); Mean Corpuscular Volume 95 fL (80-97); Mean Platelet Volume 8.2 fL (7.4-10.4); Nucleated Red Blood Cells % 0.2; Platelet Count 231 10^3/uL (150-450); Red Blood Count 4.38 10^6 /uL (3.70-4.87); Red Cell Distribution Width 13 % (10-15); White Blood Count 5.8 10^3/uL (3.5-10.8)
[2022-01-22 17:32] LABS: Albumin 3.6 g/dL (3.2-5.2); Calcium 9.1 mg/dL (8.6-10.3); Potassium 4.1 mmol/L (3.5-5.0); Total Bilirubin 0.3 mg/dL (0.2-1.0)
[2022-01-22 17:38] LABS: Albumin/Globulin Ratio 1.7 (1-3); Globulin 2.1 g/dL (2-4); Total Protein 5.7 g/dL (6.4-8.9); eGFR CKD-EPI 113.1 (>60)
[2022-01-22 18:28] LABS: TSH Ultra Thyroid Stim Horm 0.02 mcIU/mL (0.34-5.60)
[2022-01-23] MEDS: DULoxetine DR 30 mg CAP PO SCH ×2 (08:47→08:49)
[2022-01-23] MEDS: Nicotine PATCH 14 MG/24 HR PATCH TRANSDERM SCH (08:48)
[2022-01-23] MEDS: Vitamin THERAPEUTIC TAB PO SCH (08:48)
[2022-01-23 10:23] VITALS: BP 136/108
== END 2022-01-23 14:00 | disposition home or self-care (01) | DRG 757 ==
LOC: ED 10:49 → BSU 21:30
PROVIDERS: ADMIT Psychiatry & Neurology Addiction Psychiatry; ATTEND Psychiatry & Neurology Addiction Psychiatry